=== PATIENT | male | born 1995 | race Caucasian/White ===

== ENCOUNTER → 2020-07-03 | Outpatient (CLI) | payer OTHER ==
[~2020-07-03] MED LIST: ACET-1600 PO; BUSP10TA PO; GABA300C PO; IBUP-1222 PO
[2020-07-03 08:57] LABS: BASOPHILS % (AUTO) 2 % (0-1); EOSINOPHILS % (AUTO) 1 % (1-7); LYMPHOCYTES % (AUTO) 25 % (22-44); MEAN CORPUSCULAR HEMOGLOBIN 31.3 pg (27.5-34.5); MEAN CORPUSCULAR HGB CONC 33.8 g/dL (33.2-36.2); MEAN PLATELET VOLUME 9.5 fL (7.4-10.4); MONOCYTES % (AUTO) 15 % (2-9); NEUTROPHILS % (AUTO) 58 % (42-75); PLATELET COUNT 272 x10^3/uL (130-400); RED BLOOD COUNT 4.93 x10^6/uL (4.38-5.82); RED CELL DISTRIBUTION WIDTH 13.5 % (9.4-14.8)
[2020-07-03 08:59] LABS: MD NO
[2020-07-03 09:02] LABS: MICROSCOPIC INDICATED
[2020-07-03 09:08] LABS: ALANINE AMINOTRANSFERASE 87 U/L (12-78); ALBUMIN 4.6 g/dL (3.4-5.0); ANION GAP 6 mmol/L (5-15); CALCIUM 9.3 mg/dL (8.5-10.1); CHLORIDE 106 mmol/L (98-107); CREATININE 1.04 mg/dL (0.7-1.3)
[2020-07-03 09:09] LABS: INTERNATIONAL NORMALIZED RATIO 1.02 (0.93-1.1); PROTHROMBIN TIME 10.9 Seconds (9.6-11.5)
[2020-07-03 09:11] LABS: ALKALINE PHOSPHATASE 29 U/L (45-117); BILIRUBIN,TOTAL 0.4 mg/dL (0.2-1.0); TOTAL PROTEIN 8.3 g/dL (6.4-8.2)
== END | disposition home or self-care (01) ==
LOC: STAR 07:46
PROVIDERS: ATTEND Neurological Surgery
DX: Z01.818 Encounter for other preprocedural examination (principal); M43.16 Spondylolisthesis, lumbar region; M54.16 Radiculopathy, lumbar region; M54.17 Radiculopathy, lumbosacral region; M54.5 Low back pain; M47.896 Other spondylosis, lumbar region; Z20.822 Contact with and (suspected) exposure to COVID-19
CPT/HCPCS: 71046; 80053; 81001; 85025; 85610; 85730; 87635; 93005

== ENCOUNTER 2020-07-07 07:49 | Inpatient (IN) | payer OTHER ==
[~2020-07-07] VITALS: Ht 167.6 cm; Wt 86.0 kg
[2020-07-07 08:42] VITALS: BP 147/108
[2020-07-07] MEDS ORDERED: CHLORHEXIDINE 15 ML UDC ONE (08:49)
[2020-07-07] MEDS ORDERED: CHLORHEXIDINE 15 ML UDC MM ONE (09:00)
[2020-07-07] MEDS ORDERED: LACTATED RINGERS 1,000 ML IV SCH (09:00)
[2020-07-07] MEDS ORDERED: MIDAZOLAM 1 MG/ML, 2ML ONE (09:32)
[2020-07-07] MEDS ORDERED: PROPOFOL 50 ML ONE ×2 (09:32→11:22)
[2020-07-07] MEDS ORDERED: FENTANYL PF 250 MCG/5ML ONE (09:33)
[2020-07-07] MEDS ORDERED: BACITRACIN 50,000 UNIT ONE (10:07)
[2020-07-07] MEDS ORDERED: HEPARIN 1,000 UNITS/ML, 30ML ONE (10:07)
[2020-07-07] MEDS ORDERED: BUPIVACAINE/PF 0.5% ONE (10:07)
[2020-07-07] MEDS ORDERED: EPINEPHRINE 1 MG/ML, 1ML ONE (10:07)
[2020-07-07] MEDS ORDERED: MAGNESIUM SULFATE 1 GM/2 ML ONE (10:16)
[2020-07-07] MEDS ORDERED: KETAMINE 10 MG/ML, 20ML ONE (10:17)
[2020-07-07] MEDS ORDERED: CEFAZOLIN 1,000 MG ONE (10:29)
[2020-07-07] MEDS ORDERED: ROCURONIUM 10 MG/ML,10ML ONE (10:29)
[2020-07-07] MEDS ORDERED: ONDANSETRON 2MG/ML, 2ML ONE (10:29)
[2020-07-07] MEDS ORDERED: SUCCINYLCHOLINE 20 MG/ML, 10ML ONE (10:29)
[2020-07-07] MEDS ORDERED: DEXAMETHASONE 4 MG/ML, 1ML ONE (10:29)
[2020-07-07] MEDS ORDERED: ACETAMINOPHEN 325 MG TABLET PO PRN (10:30)
[2020-07-07] MEDS ORDERED: OXYcodone 5 MG/5 ML ORAL.SOL UDC PO PRN (10:30)
[2020-07-07] MEDS ORDERED: DIPHENHYDRAMINE 50 MG/ML, 1ML IVPush PRN ×2 (10:30→12:00)
[2020-07-07] MEDS ORDERED: hydrALAzine 20 MG/ML, 1ML IV PRN (10:30)
[2020-07-07] MEDS ORDERED: HYDROmorphone 1 MG/ML, 1ML INJ IVPush PRN ×2 (10:30→12:00)
[2020-07-07] MEDS ORDERED: PROMETHAZINE 25 MG/ML, 1ML IVPush PRN (10:30)
[2020-07-07] MEDS ORDERED: MEPERIDINE/PF 25MG/0.5ML IVPush PRN (10:30)
[2020-07-07] MEDS ORDERED: METHOCARBAMOL 1,000 MG in DEXTROSE 5% 100 ML IV PRN (10:30)
[2020-07-07] MEDS ORDERED: ONDANSETRON 2MG/ML, 2ML IVPush PRN ×2 (10:30→12:00)
[2020-07-07] MEDS ORDERED: DIAZEPAM 5 MG/ML, 2ML IVPush PRN (10:30)
[2020-07-07] MEDS ORDERED: LABETALOL 5MG/ML, 20ML IV PRN (10:30)
[2020-07-07] MEDS ORDERED: PHARMACY MAY ADJ FOR RENAL FX MC PRN (12:00)
[2020-07-07] MEDS ORDERED: SENNA/DOCUSATE TABLET PO PRN (12:00)
[2020-07-07] MEDS ORDERED: MAGNESIUM HYDROXIDE 8%, 30ML UDC PO PRN (12:00)
[2020-07-07] MEDS ORDERED: PROMETHAZINE 25 MG/ML, 1ML IM PRN (12:00)
[2020-07-07] MEDS ORDERED: BISACODYL 10 MG SUPP PR PRN (12:00)
[2020-07-07] MEDS ORDERED: HYDROcodone/APAP 5/325 TABLET PO PRN (12:00)
[2020-07-07] MEDS ORDERED: FENTANYL PF 100 MCG/2ML ONE (12:45)
[2020-07-07] MEDS: FENTANYL PF 100 MCG/2ML IV PRN ×2 (12:49→12:59)
[2020-07-07] MEDS ORDERED: METHOCARBAMOL 1,000 MG in DEXTROSE 5% 100 ML IV ONE (13:00)
[2020-07-07] MEDS ORDERED: OXYcodone 5 MG/5 ML ORAL.SOL UDC ONE (13:20)
[2020-07-07 14:16] VITALS: BP 132/91
[2020-07-07] MEDS: SODIUM CHLORIDE FLUSH 10ML SYR IVF SCH ×2 (14:52→21:00)
[2020-07-07] MEDS: GABAPENTIN 300 MG CAPSULE PO SCH ×3 (14:52→21:36)
[2020-07-07] MEDS: BUSPIRONE 10 MG TABLET PO SCH ×3 (14:52→21:35)
[2020-07-07] MEDS: D5%-0.9% NACL+KCL 20MEQ 1,000 ML IV SCH (15:16)
[2020-07-07 18:47] VITALS: BP 130/90
[2020-07-07] MEDS: CEFAZOLIN PMX 1GM/50ML 50 ML IVPB SCH (19:06)
[2020-07-07] MEDS: METHOCARBAMOL 750 MG TABLET PO PRN (19:46)
[2020-07-07] MEDS: HYDROcodone/APAP 10/325 MG TABLET PO PRN (21:36)
[2020-07-08 00:10] VITALS: BP 132/87
[2020-07-08] MEDS: HYDROcodone/APAP 10/325 MG TABLET PO PRN ×5 (01:33→22:53)
[2020-07-08] MEDS: D5%-0.9% NACL+KCL 20MEQ 1,000 ML IV SCH ×3 (01:33→21:00)
[2020-07-08] MEDS: CEFAZOLIN PMX 1GM/50ML 50 ML IVPB SCH ×2 (02:37→17:43)
[2020-07-08 03:05] VITALS: BP 148/83
[2020-07-08] MEDS: METHOCARBAMOL 750 MG TABLET PO PRN ×2 (03:31→20:57)
[2020-07-08] MEDS ORDERED: ENOXAPARIN 40 MG/0.4 ML SQ SCH (06:00)
[2020-07-08] MEDS ORDERED: EPINEPHRINE 1 MG/ML, 1ML ONE (06:21)
[2020-07-08] MEDS ORDERED: BUPIVACAINE/PF 0.5% ONE (06:21)
[2020-07-08] MEDS ORDERED: BACITRACIN 50,000 UNIT ONE (06:21)
[2020-07-08] MEDS ORDERED: VANCOMYCIN 1,000 MG ONE (06:21)
[2020-07-08] MEDS: BUSPIRONE 10 MG TABLET PO SCH ×3 (07:54→20:57)
[2020-07-08] MEDS: SODIUM CHLORIDE FLUSH 10ML SYR IVF SCH ×2 (07:54→21:00)
[2020-07-08] MEDS: GABAPENTIN 300 MG CAPSULE PO SCH ×3 (07:54→20:57)
[2020-07-08 08:20] VITALS: BP 138/87
[2020-07-08] MEDS ORDERED: PROPOFOL 100 ML ONE (09:49)
[2020-07-08] MEDS ORDERED: MIDAZOLAM 1 MG/ML, 2ML ONE (09:49)
[2020-07-08] MEDS ORDERED: FENTANYL PF 250 MCG/5ML ONE ×2 (09:49→11:52)
[2020-07-08] MEDS ORDERED: NEOSTIGMINE 1 MG/ML, 10ML ONE (09:50)
[2020-07-08] MEDS ORDERED: CEFAZOLIN 1,000 MG ONE (09:50)
[2020-07-08] MEDS ORDERED: ROCURONIUM 10MG/ML,5ML ONE (09:50)
[2020-07-08] MEDS ORDERED: PROPOFOL 10 MG/ML, 20ML ONE (09:50)
[2020-07-08] MEDS ORDERED: GLYCOPYRROLATE 0.2MG/1ML, 5ML ONE (09:50)
[2020-07-08] MEDS ORDERED: CHLORHEXIDINE 15 ML UDC ONE (10:14)
[2020-07-08] MEDS ORDERED: ACETAMINOPHEN 325 MG TABLET PO PRN (11:30)
[2020-07-08] MEDS ORDERED: OXYcodone 5 MG/5 ML ORAL.SOL UDC PO PRN (11:30)
[2020-07-08] MEDS ORDERED: LABETALOL 5MG/ML, 20ML IV PRN (11:30)
[2020-07-08] MEDS ORDERED: FENTANYL PF 100 MCG/2ML IV PRN (11:30)
[2020-07-08] MEDS ORDERED: MEPERIDINE/PF 25MG/0.5ML IVPush PRN (11:30)
[2020-07-08] MEDS ORDERED: hydrALAzine 20 MG/ML, 1ML IV PRN (11:30)
[2020-07-08] MEDS ORDERED: ONDANSETRON 2MG/ML, 2ML IVPush PRN (11:30)
[2020-07-08] MEDS ORDERED: morphine SULFATE 10 MG/ML, 1ML IVPush PRN (11:30)
[2020-07-08] MEDS ORDERED: FENTANYL PF 100 MCG/2ML ONE (13:53)
[2020-07-08] MEDS ORDERED: HYDROmorphone 1 MG/ML, 1ML INJ ONE (13:53)
[2020-07-08] MEDS ORDERED: OXYcodone 5 MG/5 ML ORAL.SOL UDC ONE (13:54)
[2020-07-08] MEDS ORDERED: SENNA/DOCUSATE TABLET PO PRN (14:00)
[2020-07-08] MEDS ORDERED: METHOCARBAMOL 1,000 MG in DEXTROSE 5% 100 ML IV ONE (14:00)
[2020-07-08] MEDS ORDERED: PROMETHAZINE 25 MG/ML, 1ML IM PRN (14:00)
[2020-07-08] MEDS ORDERED: DIPHENHYDRAMINE 50 MG/ML, 1ML IVPush PRN (14:00)
[2020-07-08] MEDS ORDERED: HYDROcodone/APAP 5/325 TABLET PO PRN (14:00)
[2020-07-08] MEDS ORDERED: HYDROmorphone 1 MG/ML, 1ML INJ IVPush PRN (14:00)
[2020-07-08] MEDS ORDERED: D5%-0.9% NACL+KCL 20MEQ 1,000 ML IV SCH (14:00)
[2020-07-08] MEDS ORDERED: PHARMACY MAY ADJ FOR RENAL FX MC PRN (14:00)
[2020-07-08] MEDS ORDERED: BISACODYL 10 MG SUPP PR PRN (14:00)
[2020-07-08] MEDS: HYDROmorphone 1 MG/ML, 1ML INJ IVPush PRN ×2 (14:20→14:30)
[2020-07-08 15:42] VITALS: BP 133/98
[2020-07-08] MEDS: ONDANSETRON 2MG/ML, 2ML IVPush PRN (16:37)
[2020-07-08 18:22] VITALS: BP 141/95
[2020-07-08] MEDS ORDERED: METHOCARBAMOL 750 MG TABLET ONE (18:57)
[2020-07-08 23:30] VITALS: BP 146/92
[2020-07-09] MEDS: CEFAZOLIN PMX 1GM/50ML 50 ML IVPB SCH (01:31)
[2020-07-09] MEDS: HYDROcodone/APAP 10/325 MG TABLET PO PRN ×5 (02:54→20:17)
[2020-07-09 02:56] VITALS: BP 134/88
[2020-07-09] MEDS: ENOXAPARIN 40 MG/0.4 ML SQ SCH (05:29)
[2020-07-09] MEDS: METHOCARBAMOL 750 MG TABLET PO PRN ×3 (05:29→21:41)
[2020-07-09] MEDS: D5%-0.9% NACL+KCL 20MEQ 1,000 ML IV SCH ×2 (05:29→17:00)
[2020-07-09 07:18] VITALS: BP 120/79
[2020-07-09] MEDS: BUSPIRONE 10 MG TABLET PO SCH ×3 (08:26→20:16)
[2020-07-09] MEDS: GABAPENTIN 300 MG CAPSULE PO SCH ×3 (08:26→20:17)
[2020-07-09] MEDS: SODIUM CHLORIDE FLUSH 10ML SYR IVF SCH ×2 (08:27→20:17)
[2020-07-09 10:16] LABS: BASOPHILS % (AUTO) 0 % (0-1); EOSINOPHILS % (AUTO) 0 % (1-7); LYMPHOCYTES % (AUTO) 11 % (22-44); MEAN CORPUSCULAR HEMOGLOBIN 31.1 pg (27.5-34.5); MEAN PLATELET VOLUME 9.1 fL (7.4-10.4); MONOCYTES % (AUTO) 14 % (2-9); NEUTROPHILS % (AUTO) 75 % (42-75); PLATELET COUNT 221 x10^3/uL (130-400); RED BLOOD COUNT 4.16 x10^6/uL (4.38-5.82); RED CELL DISTRIBUTION WIDTH 13.7 % (9.4-14.8)
[2020-07-09 10:23] LABS: CALCIUM 9.2 mg/dL (8.5-10.1); CREATININE 0.91 mg/dL (0.7-1.3)
[2020-07-09] MEDS: ONDANSETRON 2MG/ML, 2ML IVPush PRN (10:27)
[2020-07-09 10:32] LABS: ANION GAP 10 mmol/L (5-15); CHLORIDE 107 mmol/L (98-107)
[2020-07-09 10:50] LABS: MD SCAN
[2020-07-09 15:59] VITALS: BP 134/89
[2020-07-09 18:47] VITALS: BP 135/91
[2020-07-09] MEDS: MAGNESIUM HYDROXIDE 8%, 30ML UDC PO PRN (21:25)
[2020-07-10] MEDS: HYDROcodone/APAP 10/325 MG TABLET PO PRN ×2 (00:05→05:26)
[2020-07-10 01:18] VITALS: BP 122/78
[2020-07-10] MEDS: D5%-0.9% NACL+KCL 20MEQ 1,000 ML IV SCH (03:00)
[2020-07-10] MEDS: ENOXAPARIN 40 MG/0.4 ML SQ SCH (05:26)
[2020-07-10] MEDS: METHOCARBAMOL 750 MG TABLET PO PRN (05:27)
[2020-07-10 07:30] VITALS: BP 136/95
[2020-07-10] MEDS: ONDANSETRON 2MG/ML, 2ML IVPush PRN (08:30)
[2020-07-10] MEDS: GABAPENTIN 300 MG CAPSULE PO SCH ×3 (08:30→21:04)
[2020-07-10] MEDS: SODIUM CHLORIDE FLUSH 10ML SYR IVF SCH ×2 (09:00→21:04)
[2020-07-10 09:19] LABS: BASOPHILS % (AUTO) 0 % (0-1); EOSINOPHILS % (AUTO) 1 % (1-7); LYMPHOCYTES % (AUTO) 12 % (22-44); MD NO; MEAN CORPUSCULAR HEMOGLOBIN 31.4 pg (27.5-34.5); MEAN CORPUSCULAR HGB CONC 33.8 g/dL (33.2-36.2); MEAN PLATELET VOLUME 9.4 fL (7.4-10.4); MONOCYTES % (AUTO) 11 % (2-9); NEUTROPHILS % (AUTO) 77 % (42-75); PLATELET COUNT 188 x10^3/uL (130-400); RED BLOOD COUNT 3.82 x10^6/uL (4.38-5.82); RED CELL DISTRIBUTION WIDTH 13.3 % (9.4-14.8)
[2020-07-10 09:30] LABS: ALBUMIN 3.1 g/dL (3.4-5.0); ANION GAP 5 mmol/L (5-15); CALCIUM 8.9 mg/dL (8.5-10.1); CHLORIDE 108 mmol/L (98-107)
[2020-07-10 09:34] LABS: ALANINE AMINOTRANSFERASE 45 U/L (12-78); ALKALINE PHOSPHATASE 32 U/L (45-117); BILIRUBIN,TOTAL 0.8 mg/dL (0.2-1.0); CREATININE 0.83 mg/dL (0.7-1.3); TOTAL PROTEIN 6.8 g/dL (6.4-8.2)
[2020-07-10] MEDS: POTASSIUM CHLORIDE 40 MEQ in SODIUM CHLORIDE 0.45% 1,000 ML IV SCH ×2 (09:51→21:05)
[2020-07-10] MEDS: OXYcodone/APAP 5/325MG TABLET PO PRN ×4 (09:52→23:04)
[2020-07-10] MEDS: POLYETHYLENE GLYCOL 17 GM PACKET NG SCH (10:09)
[2020-07-10] MEDS: METOCLOPRAMIDE 5 MG/ML, 2ML IVPush SCH ×3 (10:09→21:04)
[2020-07-10 12:50] VITALS: BP 139/93
[2020-07-10] MEDS: METHOCARBAMOL 750 MG TABLET PO SCH ×2 (13:31→21:05)
[2020-07-10 18:26] VITALS: BP 158/98
[2020-07-11 00:06] VITALS: BP 153/96
[2020-07-11] MEDS: METOCLOPRAMIDE 5 MG/ML, 2ML IVPush SCH ×2 (02:30→08:06)
[2020-07-11] MEDS: OXYcodone/APAP 5/325MG TABLET PO PRN ×3 (04:07→11:54)
[2020-07-11] MEDS: POTASSIUM CHLORIDE 40 MEQ in SODIUM CHLORIDE 0.45% 1,000 ML IV SCH (06:00)
[2020-07-11] MEDS: ENOXAPARIN 40 MG/0.4 ML SQ SCH (06:04)
[2020-07-11] MEDS: METHOCARBAMOL 750 MG TABLET PO SCH (06:04)
[2020-07-11] MEDS ORDERED: BUSPIRONE 10 MG TABLET PO SCH (06:30)
[2020-07-11 07:50] VITALS: BP 145/92
[2020-07-11] MEDS: POLYETHYLENE GLYCOL 17 GM PACKET NG SCH (08:07)
[2020-07-11] MEDS: GABAPENTIN 300 MG CAPSULE PO SCH (08:07)
[2020-07-11] MEDS: MAGNESIUM HYDROXIDE 8%, 30ML UDC PO PRN (08:08)
[2020-07-11] MEDS: SODIUM CHLORIDE FLUSH 10ML SYR IVF SCH (08:08)
[2020-07-11] MEDS ORDERED: BISA10SU4 PR (08:09)
[2020-07-11] MEDS ORDERED: OXYC1TAB14 PO (08:09)
[2020-07-11] MEDS ORDERED: METH-640 PO (08:09)
[2020-07-11] MEDS ORDERED: POLY17PO5 NG (08:09)
[2020-07-11 12:12] VITALS: BP 156/98
== END 2020-07-11 12:28 | disposition home or self-care (01) | DRG 455 ==
LOC: ORIP 08:08 → 4NE 14:05 → DCLOUNGE 07-11 12:15
PROVIDERS: ADMIT Neurological Surgery; ATTEND Neurological Surgery
PROC: 0SG30A0 Fusion of Lumbosacral Joint with Interbody Fusion Device, Anterior Approach, Anterior Column, Open Approach (ICD-10-PCS; principal; 2020-07-07 10:30)
PROC: 0SG3071 Fusion of Lumbosacral Joint with Autologous Tissue Substitute, Posterior Approach, Posterior Column, Open Approach (ICD-10-PCS; 2020-07-08)
PROC: 01NB0ZZ Release Lumbar Nerve, Open Approach (ICD-10-PCS; 2020-07-08)
PROC: 01NR0ZZ Release Sacral Nerve, Open Approach (ICD-10-PCS; 2020-07-08)
PROC: 4A11X4G Monitoring of Peripheral Nervous Electrical Activity, Intraoperative, External Approach (ICD-10-PCS; 2020-07-08)
DX: M47.816 Spondylosis without myelopathy or radiculopathy, lumbar region (principal); M43.17 Spondylolisthesis, lumbosacral region; M48.061 Spinal stenosis, lumbar region without neurogenic claudication; M51.17 Intervertebral disc disorders with radiculopathy, lumbosacral region
CPT/HCPCS: 36415; 72100; 74018; S0020; 71045; 72131; 80048; 80053; 85025; 93005; 95938; 95941; C1713; G0378; J0171; J0690; J1100; J1170; J1644; J1650; J2250; J2405; J2704; J2710; J3010; J3370; J3475; J3480; C1763; C1889; J0330; J2765; J2800; J7120